=== PATIENT | female | born 1985 ===

== ENCOUNTER → 2021-03-14 | Outpatient (CLI) | payer OTHER | END | disposition home or self-care (01) | LOC: PRENATAL 09:30 | PROVIDERS: ATTEND Obstetrics & Gynecology Maternal & Fetal Medicine | DX: Z36.89 Encounter for other specified antenatal screening (principal); O36.80X1 Pregnancy with inconclusive fetal viability, fetus 1; O09.512 Supervision of elderly primigravida, second trimester; Z3A.15 15 weeks gestation of pregnancy ==

== ENCOUNTER 2021-04-24 13:08 | Outpatient (CLI) | payer OTHER | END 2021-04-24 14:08 | disposition home or self-care (01) | LOC: PRENATAL 13:08 | PROVIDERS: ATTEND Obstetrics & Gynecology Maternal & Fetal Medicine | DX: O35.0XX1 Maternal care for (suspected) central nervous system malformation in fetus, fetus 1 (principal); O35.3XX1 Maternal care for (suspected) damage to fetus from viral disease in mother, fetus 1; O98.512 Other viral diseases complicating pregnancy, second trimester; O09.512 Supervision of elderly primigravida, second trimester; Z36.89 Encounter for other specified antenatal screening; Z3A.20 20 weeks gestation of pregnancy ==